=== PATIENT | male | born 1980 | race Caucasian/White ===

== ENCOUNTER 2019-12-07 11:06 | Emergency (ER) | payer OTHER ==
[~2019-12-07] VITALS: Ht 177.8 cm; Wt 79.4 kg
[2019-12-07 13:13] LABS: ABSOLUTE NEUTROPHILS 11.3 thou/uL (1.4-8.2); BASOPHILS 0.4 % (0.0-2.0); HEMATOCRIT 39.5 % (42.0-52.0); HEMOGLOBIN 13.3 gm/dL (14.0-18.0); LYMPHOCYTES 8.8 % (24.0-44.0); MCH 32.5 pg (26.0-34.0); MCHC 33.7 g/dL (28.0-37.0); MCV 96.4 fL (80.0-100.0); MONOCYTES 5.7 % (1.0-8.0); PLATELET COUNT 277 thou/uL (150-400); POLYS 85.1 % (36.0-66.0); WBC 13.3 thou/uL (4.0-11.0)
[2019-12-07 13:28] LABS: CALCIUM 9.4 mg/dL (8.5-10.1); CREATININE 1.1 mg/dL (0.7-1.3); POTASSIUM 4.1 mmol/L (3.5-5.1)
[2019-12-07] MEDS ORDERED: ONDANSETRON HCL4 M2 PO (13:59)
[2019-12-07] MEDS ORDERED: TESSALON PERLE100 MG PO (13:59)
[2019-12-07] MEDS ORDERED: IBUPROFEN 600600 M1 PO (13:59)
[2019-12-07] MEDS ORDERED: DOXYCYCLINE 10100 MG PO (14:12)
[2019-12-07 14:16] VITALS: BP 100/58
== END 2019-12-07 14:18 | disposition home or self-care (01) ==
LOC: ER 11:06
PROVIDERS: Physician Assistant
DX: R05 Cough (principal); R50.9 Fever, unspecified; M79.10 Myalgia, unspecified site

== ENCOUNTER 2021-06-26 11:57 | Emergency (ER) | payer OTHER ==
[~2021-06-26] VITALS: Ht 180.3 cm; Wt 81.7 kg
[~2021-06-26 11:57] MED LIST: DOXYCYCLINE 10100 MG PO; IBUPROFEN 600600 M1 PO; ONDANSETRON HCL4 M2 PO; TESSALON PERLE100 MG PO
[2021-06-26] MEDS ORDERED: AUGMENTIN 875-1 EACH PO (14:15)
[2021-06-26] MEDS ORDERED: TORADOL 10 MG T10 MG PO (14:15)
[2021-06-26 14:57] VITALS: BP 109/81
== END 2021-06-26 14:59 | disposition home or self-care (01) ==
LOC: ER 11:57
DX: J32.9 Chronic sinusitis, unspecified (principal); Z20.822 Contact with and (suspected) exposure to COVID-19; K21.9 Gastro-esophageal reflux disease without esophagitis; Z88.8 Allergy status to other drugs, medicaments and biological substances